=== PATIENT | male | born 1950 | race Caucasian/White ===

== ENCOUNTER 2019-02-20 10:07 | Observation (INO) | payer OTHER ==
[2019-02-20] VITALS (18 sets, daily range): BP systolic 108–141; BP diastolic 53–75
[~2019-02-20] VITALS: Ht 167.6 cm; Wt 75.7 kg
--- NOTE | ~2019-02-20 | H ---
[address] [address] HISTORY AND PHYSICAL Name: WILLAM ARTEAGA Room: [address] [place] Frye#: [id number] Admission: 02/20/19 Attend Phys: Tarik Bennett MD Discharge: 02/21/19 Date of : 54 Report #: [id number] THIS REPORT FOR: //name// Please refer to the History and Physical performed in the physician's office. By: [id number] Records Staff KAPIL /JESSEE
[~2019-02-20 10:07] MED LIST: NOHOMEMEDICATIONS
[2019-02-20 11:22] LABS: HEMATOCRIT 39.5 % (42.0-52.0); HEMOGLOBIN 13.2 gm/dL (14.0-18.0); MCHC 33.4 g/dL (28.0-37.0); MCV 80.9 fL (80.0-100.0); MPV 8.3 fl. (7.2-11.1); RBC 4.89 mil/uL (4.50-6.00); RDW-CV 15.3 % (10.5-14.5); WBC 8.8 thou/uL (4.0-11.0)
[2019-02-20] MEDS ORDERED: ASPIR 8181 MG PO (11:25)
[2019-02-20] MEDS ORDERED: CARVEDILOL12.5 MG PO (11:27)
[2019-02-20] MEDS ORDERED: PLAVIX 75 MG TA75 M1 PO (11:27)
[2019-02-20] MEDS ORDERED: LIPITOR40 MG PO (11:27)
[2019-02-20] MEDS ORDERED: ZESTRIL10 MG PO (11:28)
[2019-02-20] MEDS ORDERED: IMDUR 30 MG TAB30 M1 PO (11:28)
[2019-02-20] MEDS ORDERED: FLOMAX0.4 MG PO (11:29)
[2019-02-20 11:31] LABS: ANION GAP 7 mmol/L (7-16); BUN 10 mg/dL (7-18); CALCIUM 9.3 mg/dL (8.5-10.1); CHLORIDE 104 mmol/L (98-107); CO2 29 mmol/L (21-32); GLUCOSE 166 mg/dL (70-99); POTASSIUM 3.8 mmol/L (3.5-5.1); SODIUM 140 mmol/L (136-145)
[2019-02-20 11:32] LABS: APTT 26.8 Seconds (25.0-31.3); PROTIME 10.5 Seconds (9.20-11.50); SERUM ASSESSMENT Clear
[2019-02-20 11:35] LABS: CHOLESTEROL 119 mg/dL (<200); HDL CHOLESTEROL 43 mg/dL (>40); LDL CHOLESTEROL 61 mg/dL (<100); TC:HDL 2.8 Ratio (Not establshd); TRIGLYCERIDE 77 mg/dL (<150); VLDL 15 mg/dL (<40)
--- NOTE | 2019-02-20 16:02 | EKG ---
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
--- NOTE | 2019-02-20 16:04 | EKG ---
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
--- NOTE | 2019-02-20 16:45 | NUR ---
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 ADMISSION ASSESSMENT AND HISTORY COMPLETED. REFER TO CHARTING. HOME MEDICATIONS RECONCILED AND RESTARTED. MEDICARE AND FALL AGREEMENT SIGNED AND PLACED IN FRONT OF CHART. PT HAD HEART CATH- ACCESS INTO RIGHT GROIN. CATH SITE IS C/D/I WITH NO HEMATOMA NOTED. 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 ON RA SAT UPPER 90'S. PT DENIES ANY PAIN OR SHORTNESS OF BREATH. POST CARDIAC CATH ASSESSMENT AND VITALS CHARTED. REFER TO CHARTING. PROBABLE DISCHARGE HOME TOMORROW 02/21. MEDICATIONS PER SEP. PT REPOSTIIONS SELF. PT INSTRUCTED ON IMMOBLIZATION AND BEDREST UNTIL 1999 AND COMMUNICATES UNDERSTANDING. HOURLY ROUNDING OBSERVED. BED IN LOW POSITION. CALL LIGHT WITHIN REACH. WILL CONTINUE PLAN OF CARE.
--- NOTE | 2019-02-20 18:05 | NUR ---
OBTAINED REPORT FROM AMELIA SHORE. PT VSS AT THIS TIME ON RA, STILL ON POST CATH BEDREST-WILL BE MAINTAINED UNTIL 1999, WILL RETURN TO AD COLEEN STATUS AFTER BEDREST PXN COMPLETE. PT R GROIN CATH SITE IS SOFT, CDI AT THIS TIME. PT IV FLUIDS COMPLETE AT THIS TIME, TOLERATING DIET. HOURLY ROUNDING MAINTAINED. WILL CONTINUE TO MONITOR AND ASSESS
[2019-02-21] VITALS: BP 123/78
[2019-02-21 04:00] VITALS: BP 139/88
--- NOTE | 2019-02-21 04:57 | NUR ---
PT SLEPT ON AND OFF THIS SHIFT. ASSESSMENT DOCUMENTED. MEDS GIVEN PER E-SEP. IV PATENT. CATH SITE C/D/I, NO SIGNS OF HEMATOMA. NICOTINE PATCH ORDERED. PT REPORTED BACK PAIN FROM BED. PT REFUSED TYLENOL, NOTIFIED. WILL CONTINUE WITH PLAN OF CARE.
[2019-02-21 05:11] LABS: HEMATOCRIT 38.1 % (42.0-52.0); HEMOGLOBIN 12.5 gm/dL (14.0-18.0); MCH 26.5 pg (26.0-34.0); MCHC 32.7 g/dL (28.0-37.0); MCV 80.9 fL (80.0-100.0); MPV 8.6 fl. (7.2-11.1); RBC 4.71 mil/uL (4.50-6.00); RDW-CV 15.4 % (10.5-14.5); WBC 8.6 thou/uL (4.0-11.0)
[2019-02-21 05:23] LABS: ALBUMIN 2.8 g/dL (3.4-5.0); CALCIUM 8.4 mg/dL (8.5-10.1); CREATININE 0.8 mg/dL (0.6-1.3); POTASSIUM 3.8 mmol/L (3.5-5.1); TOTAL BILIRUBIN 0.5 mg/dL (<0.1-1.0); TOTAL PROTEIN 6.4 g/dL (6.4-8.2)
[2019-02-21 08:00] VITALS: BP 165/87
[2019-02-21 09:30] VITALS: BP 121/70
[2019-02-21] MEDS ORDERED: COLACE100 MG PO (09:35)
--- NOTE | 2019-02-21 09:45 | NUR ---
RECEIVED REPORT AND ASSUMED CARE OF PT @ 8050.PT IS A/O X4,VSS,TRACING SR WITH BBB ON THE MONITOR.IV PATENT AND SALINE LOCKED.PT IS IRRITABLE AND ANXIOUS TO BE DISCHARGED.C/O PAIN IN BACK BUT REFUSES TO TAKE MEDICATIONS THAT ARE AVALIABLE.RIGHT GROIN CATH SITE CLEAN, DRY, AND INTACT.PT IS UP AD COLEEN IN THE ROOM WITH CALL LIGHT WITHIN REACH. PT OK FOR DISCHARGE.PAPERWORK COMPLETED AND GIVEN TO PT.NO SCRIPTS.IV REMOVED.HEART MONITOR REMOVED AND RETURNED TO THE NURSING STATION.POST CATH EDUCATION GIVEN.ALL PERSONAL BELONGINGS PACKED AND TAKEN WITH PT.PT WHEELED OUT BY NURSING STAFF TO PERSONAL VEHICLE.
--- NOTE | 2019-02-21 14:21 | NUR ---
CALLED AND SPOKE WITH PT AT HOME WITH CARDIOLOGY FOLLOW UP APPOINTMENT DATE AND TIME.
--- NOTE | 2019-02-22 09:13 | EKG ---
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 : 1950 Requested By: Tarik Bennett Order Number: [id number] Liborio MD: Tarik Bennett Measurements Intervals [place] Rate: 95 P: 30 [place]: 143 QRS: 5 QRSD: 104 T: 20 QT: 362 QTc: 455 Interpretive Statements Sinus rhythm Minimal ST depression, anterolateral leads Inferior infarct, old Baseline wander in lead(s) I,II,aVR,V1,V2,V4,V5,V6 Compared to ECG 02/20/2019 14:29:31 ST (T wave) deviation now present Electronically Signed On 02-22-2019 9:13:21 CDT by Tarik Bennett [email or web address] <ELECTRONICALLY SIGNED> By: Tarik Bennett MD, FACC 02/22/19 0913 0548 0548 Tarik Bennett MD, FACC /EPI
--- NOTE | 2019-02-22 12:24 | CARD ---
[address] [address] CARDIAC CATH REPORT Name: WILLAM ARTEAGA Room: [address] More[place] Frye#: [id number] Admission: 02/20/19 Attend Phys: Tarik Bennett MD Discharge: 02/21/19 Date of : 54 Report #: [id number] THIS REPORT FOR: //name// ADDENDUM APPROVED REPORT Study performed: 02/20/2019 12:27:47 Patient Details The patient is a 68 year-old male Event Personnel Tarik Bennett Tank Systems Maintainer, Josette Stearns RN RN, Baldemar ColeIS Scrub, Desiree Cortes RN Monitor, Rainer Marino Agricultural Agent, Maria Elena Pizano RTShelli Monitor Procedures Performed Art Access - R femoral artery* Procedure Narrative The patient was brought electively to the Cardiac Catheterization Laboratory and was prepped and draped in a sterile manner. A 6fr Ultimum Sheath sheath was inserted into the right femoral artery. Coronary angiography was performed using coronary diagnostic catheters. The right coronary system was accessed and visualized with a 6 fr. JR 4 catheter. The left coronary system was accessed and visualized with a 6 fr. JL4 catheter. The left ventricle was accessed and visualized with a 6 fr. Pigtail catheter. The patient tolerated the procedure well and there were no complications associated with the procedure. Intraoperative Conscious Sedation Sedation start time: 1259 Case end Time: 1400 Fentanyl 50 mcg Versed 2 mg Dose: 112 mGy Contrast Type and Amount: Omnipaque 350 ml Coronary Angiography The patient's coronary anatomy is right dominant. Diagnostic Cath Left Main Normal LAD Diffusely plaqued with 50% mid LAD narrowing. Distally there is a 50% [place] [address] CARDIAC CATH REPORT Name: CHANDLERWILLAM Shelli Room: [address]#: [id number] Admission: 02/20/19 Attend Phys: Tarik Bennett MD Discharge: 02/21/19 Date of : 54 Report #: [id number] Diagonal 1 70% proximal stenosis. Circumflex Mildly plaqued proximally. Distal vessel free of significant disease. OM1 Small caliber diffusely plaqued OM2 90% proximal tubular stenosis Right Coronary 50% proximal narrowing. The vessel mildly plaqued. R PDA Mildly plaqued without hemodynamically significant stenoses. RPLV Patent stents in the proximal portion. The distal vessel is mildly plaqued. IVUS Anticoagulation was achieved with . Angiomax Intravascular Ultrasound was performed on the first obtuse marginal branch segment vessel. A Guide Catheter was used to engage the 6F XB LAD 3.5 ostium. A IG: BMW 190cm was used. IVUS Findings Mini Trek RX 2.0 X 8 Hemodynamics The aortic pressure is 107/54 mmHg with a mean of 27 mmHg. The left ventricular pressure is 107/3 mmHg with a mean of mmHg. The left ventricular end diastolic pressure is 19 mmHg. PCI Technique Lesion Anticoagulation was achieved with Angiomax. Patient was preloaded with Angiomax IV 11 mg per kg. Percutaneous coronary intervention was performed on the first obtuse marginal branch segment. The lesion stenosis prior to intervention was 90% with JENI 2 flow. A 6F XB LAD 3.5 Guide Catheter was used to engage the ostium. A IG: BMW 190cm Interventional Guidewire was used to cross the lesion. BALLOON DILATION A Balloon catheter Mini Trek RX 1.5 X 12 was inserted and inflated up to 16.00atm for 4seconds. Additional Inflation: 18.00atm for 5seconds. STENT DEPLOYMENT A drug-eluting stent Vilas RX Stent 2.0X12mm was inserted and inflated up to 10.00atm for 6seconds. Additional Inflation: 12.00atm for 11seconds. Final angiography reveals 15 % stenosis with JENI 3 flow. [place] [address] CARDIAC CATH REPORT Name: WILLAM ARTEAGA Room: [address] Melva#: [id number] Admission: 02/20/19 Attend Phys: Tarik Bennett MD Discharge: 02/21/19 Date of : 54 Report #: [id number] Anticoagulation was achieved with Angiomax. Patient was preloaded with Angiomax IV 11 mg per kg. Percutaneous coronary intervention was performed on the first obtuse marginal branch segment. A 6F XB LAD 3.5 Guide Catheter was used to engage the ostium. A IG: BMW 190cm Interventional Guidewire was used to cross the lesion. BALLOON DILATION A Balloon catheter Mini Trek RX 2.0 X 8 was inserted and inflated up to 10.00atm for 11seconds. Additional Inflation: 10.00atm for 11seconds. PCI Technique Lesion 2 Percutaneous Coronary Intervention was performed on the first diagnonal branch segment. Patient was preloaded with Angiomax IV 11 mg per kg. The lesion stenosis prior to intervention was 80% with JENI 3 flow. A 6F XB LAD 3.5 Guide Catheter was used to engage the ostium. A IG: BMW 190cm Interventional Guidewire was used to cross the lesion. Stent Deployment A drug-eluting stent Chris RX Stent 2.25X8mm was inserted and inflated up to 14.00atm for 12seconds. Additional Inflation: 12.00atm for 5seconds. Final angiography reveals 0 % stenosis with JENI 3 flow. Conclusion 1. Fairly diffuse coronary artery disease with high-grade stenoses involving the first diagonal and second obtuse marginal branches. 2. Widely patent stent in the posterior lateral LV branch of the right coronary artery. 3. Normal LV systolic function with EF of 55-60%. 4. Mildly elevated left ventricular end-diastolic pressure. 5. Successful percutaneous coronary intervention to the first diagonal branch and second obtuse marginal branch with drug-eluting stent placement with 0 and 10% residual narrowings following stent deployment and JENI-3 flow the distal vessels Recommendations 1. Continue aggressive risk factor modification. 2. Continue dual antiplatelet therapy for a minimum of [address] [address] CARDIAC CATH REPORT Name: WILLAM ARTEAGA Room: [address] ALY Frye#: [id number] Admission: 02/20/19 Attend Phys: Tarik Bennett MD Discharge: 02/21/19 Date of : 54 Report #: [id number] Diagnostic Cath Approved by: Tarik Bennett MD Date/Time: 02/22/2019 12:22:47 <ELECTRONICALLY SIGNED> By: Rainer Marino MD, FACC 02/22/19 1224 1224 1224Rainer Marino MD, FACC /INF
--- NOTE | 2019-02-22 19:52 | D ---
[address] [address] DISCHARGE SUMMARY Name: WILLAM ARTEAGA Shelli Room: [address] [place] Frye#: [id number] Admission: 02/20/19 Attend Phys: Tarik Bennett MD Discharge: 02/21/19 Date of : 54 Report #: [id number] THIS REPORT FOR: //name// CC: [facility] physician/PCP Tarik Bennett CARDIOLOGY DISCHARGE SUMMARY DISCHARGE DIAGNOSES: 1. Unstable angina. 2. Coronary artery disease. 3. Hypertension. 4. Dyslipidemia. PROCEDURES DURING THE HOSPITALIZATION: 1. Coronary angiography. 2. Left ventriculography. 3. Left heart catheterization. 4. Percutaneous coronary intervention to the first diagonal branch and second obtuse marginal branch. HOSPITAL COURSE: The patient was brought to the cardiac catheterization lab with increased chest discomfort. He had documented coronary artery disease. By angiography, he was found to have high-grade stenosis of a second obtuse marginal branch and a first diagonal branch. The patient underwent percutaneous coronary intervention with drug-eluting stents placed to both sites without complication. The patient was kept on his dual antiplatelet therapy of aspirin and clopidogrel. DISCHARGE MEDICATIONS: Lisinopril 10 mg daily, Imdur 30 mg daily, Flomax 0.4 mg daily, aspirin 81 mg daily, Plavix 75 mg daily, carvedilol 12.5 mg b.i.d., atorvastatin 40 mg at bedtime, and Colace 100 mg b.i.d. DISPOSITION: The patient is to be seen in 2 months in the Cardiology office. <ELECTRONICALLY SIGNED> By: Tarik Bennett MD, FACC 02/22/19 1952 0856 0912Miclaurent Bennett MD, FACC /nt
== END 2019-02-21 10:15 | disposition home or self-care (01) ==
LOC: M.CL 10:07 → M.2W 14:12 → M.TBA-CV 14:12 → M.2W 15:30
PROVIDERS: ADMIT Internal Medicine Cardiovascular Disease
DX: I25.110 Atherosclerotic heart disease of native coronary artery with unstable angina pectoris (principal); I10 Essential (primary) hypertension; E78.5 Hyperlipidemia, unspecified; E78.00 Pure hypercholesterolemia, unspecified; F17.200 Nicotine dependence, unspecified, uncomplicated; Z95.5 Presence of coronary angioplasty implant and graft; Z79.82 Long term (current) use of aspirin; Z79.899 Other long term (current) drug therapy